=== PATIENT | male | born 1980 | race Caucasian/White ===

== ENCOUNTER 2018-01-07 16:06 | Emergency (ER) | payer SELFPAY ==
[2018-01-07 16:18] VITALS: RESP 20
--- NOTE | 2018-01-07 17:16 | C.PDOC ---
History Of Present Illness <Sonny Roger E - Last Filed: 01/07/18 17:22> <Huseyin Ridley M - Last Filed: 01/07/18 17:39> Patient is a 37 year old male with no past medical history who presents to the ED with complaints of right upper extremity pain that started a year ago. Patient reports associated neck pain; neck pain that radiates to his right upper extremity that causes numbness and tingling in his hands. Patient states that he did not seek medical attention due to lack of insurance. Patient admits to weakness and decrease use of the right arm. Patient denies fever, chills, neck stiffness, photophobia, back pain, chest pain, SOB, palpitations but admits to neck pain, right arm numbness and tingling. (Sonny Roger) History Per: Patient History/Exam Limitations: no limitations Onset/Duration Of Symptoms: Gradual, Persistent Current Symptoms Are (Timing): Still Present Severity: Severe Pain Scale Rating Of: 8 Location: Right upper extremity; right neck pain and shoulder Recent travel outside of the [place]: No Additional History Per: Patient <Sonny Roger - Last Filed: 01/07/18 17:22> <Huseyin Ridley M - Last Filed: 01/07/18 17:39> Time Seen by Provider: 01/07/18 16:54 Chief Complaint (Nursing): Upper Extremity Problem/Injury Past Medical History Family History: States: Diabetes - Social History Hx Tobacco Use: Yes Hx Alcohol Use: No Hx Substance Use: No - Immunization History Hx Tetanus Toxoid Vaccination: No Hx Influenza Vaccination: No Hx Pneumococcal Vaccination: No <Sonny Roger - Last Filed: 01/07/18 17:22> Vital Signs: Last Vital Signs Temp 97.8 F 01/07/18 16:14 Pulse 89 01/07/18 16:14 Resp 20 01/07/18 16:14 BP 117/69 01/07/18 16:14 Pulse Ox 99 01/07/18 17:24 Review Of Systems Constitutional: Negative for: Fever, Chills, Sweats, Weakness Cardiovascular: Negative for: Chest Pain, Palpitations, Orthopnea Respiratory: Negative for: Shortness of Breath Gastrointestinal: Negative for: Nausea, Vomiting Musculoskeletal: Positive for: Neck Pain, Shoulder Pain, Arm Pain, Other (Right arm, shoulder and neck pain ) Neurological: Positive for: Weakness (Right upper extremity ), Numbness (Right arm ) <Sonny Roger - Last Filed: 01/07/18 17:22> Physical Exam - Physical Exam Appears: No Acute Distress Skin: Normal Color Head: Atraumatic, Normacephalic Neck: Normal, Normal ROM, Paracervical Tenderness, Other Cardiovascular: Rhythm Regular, No Murmur Respiratory: Normal Breath Sounds, Decreased Breath Sounds, No Accessory Muscle Use, No Rales, No Rhonchi Gastrointestinal/Abdominal: Normal Exam, Bowel Sounds, Soft, No Tenderness Back: Normal Inspection, No CVA Tenderness, No Vertebral Tenderness Extremity: Other (Right upper extremity decrease range of motion in full flexion and internal rotation ) Extremity: Right: Limited ROM To Joint (Right upper extremity ), Bilateral: Atraumatic Neurological/Psych: Oriented x3, Normal Speech, Normal Cognition Extremity: Right: No Drift <Sonny Roger - Last Filed: 01/07/18 17:22> ED Course And Treatment ECG Rhythm: Sinus Rhythm Interpretation Of ECG: Normal sinus rhythm with sinus arrhythmia. Lateral infarct, age undetermined. Rate From EC O2 Sat by Pulse Oximetry: 99 <Sonny Roger - Last Filed: 01/07/18 17:22> Medical Decision Making <Sonny Roger - Last Filed: 01/07/18 17:22> <Huseyin Ridley - Last Filed: 01/07/18 17:39> Medical Decision Making: patient with right paracervical tenderness and right shoulder pain, worst with movement, no cellulitic component, no gross swelling, nv intact, FROM with pain , xray of cervical spine and shoulder, no fract, no dislocation, preliminary reading, will discharge patient home to follow up with medical clinic in 2 days. (Huseyin Ridley) Disposition <Sonny Roger - Last Filed: 01/07/18 17:22> Counseled Patient/Family Regarding: Studies Performed, Diagnosis, Need For Followup, Rx Given - Disposition Disposition Time: 17:37 <Huseyin Ridley - Last Filed: 01/07/18 17:39> - Disposition Referrals: [facility] [Outside] Ean Cordova III, MD [Staff Provider] - Disposition: HOME/ ROUTINE Condition: STABLE Additional Instructions: follow up with your doctor or medical clinic in 2 days call to make an appointment take medications as prescribed return to hospital if symptoms worsens or progress use sling as needed rest, no heavy lifting Prescriptions: Acetaminophen/Codeine [Tylenol/Codeine 300 MG/30 MG] 1 tab PO Q6H PRN #20 tab PRN Reason: Pain, Severe (8-10) Lidocaine 5% [Lidoderm] 1 ea TD DAILY PRN #15 patch PRN Reason: Pain, Moderate (4-7) Instructions: Radiculopathy (DC) Forms: [facility] (A[place]ijani), General Discharge Instructions, Work Excuse - Clinical Impression Clinical Impression: Shoulder strain, Cervical radiculopathy
[2018-01-07] MEDS ORDERED: Acetaminophen-Codeine 300/30 mg Tab PO STA (17:32)
[2018-01-07] MEDS ORDERED: Acetaminophen-Codeine 300/30 mg Tab PO ONE (17:38)
[2018-01-07 17:55] VITALS: BP 123/83; PULSE 72; TEMP 98.3; O2SAT 100
--- NOTE | 2018-01-07 18:20 | RAD ---
PROCEDURE: Cervical spine Three views of the cervical spine performed. Note that the examination is limited due to partial obscuration of the odontoid by overlying incisor teeth in the open-mouth projection. HISTORY: Pain. COMPARISON: None. FINDINGS: BONES: No acute compression fractures nor retropulsed fragments. The vertebral bodies exhibit normal stature. DISC SPACES: Disc space heights maintained. Multilevel small marginal and tiny posterior osteophyte formation present. SOFT TISSUES: Normal. No prevertebral soft tissue swelling. OTHER FINDINGS: None. IMPRESSION: . Limited exam. No acute fractures. Mild early multilevel degenerative spondylosis as detailed above
--- NOTE | 2018-01-08 10:24 | RAD ---
PROCEDURE: Radiographs of the Right Shoulder HISTORY: Right shoulder pain COMPARISON: No prior. FINDINGS: BONES: Bone alignment and mineralization are normal. There is no acute displaced fracture or bone destruction. JOINTS: Normal. Glenohumeral and acromioclavicular joints preserved. No osteoarthritis. SOFT TISSUES: Normal. OTHER FINDINGS: None. IMPRESSION: No acute fracture or dislocation.
--- NOTE | 2018-01-09 07:55 | CARD ---
APPROVED REPORT EKG Measurement Heart [id number] TX 142P [id number] <Conclusion> Normal sinus rhythm with sinus arrhythmia
== END 2018-01-07 17:57 | disposition home or self-care (01) ==
LOC: C.ER 16:06
DX: M54.12 Radiculopathy, cervical region (principal); S46.911A Strain of unspecified muscle, fascia and tendon at shoulder and upper arm level, right arm, initial encounter; X58.XXXA Exposure to other specified factors, initial encounter; Y92.9 Unspecified place or not applicable